=== PATIENT | male | born 1975 | race Caucasian/White ===

== ENCOUNTER 2019-09-05 15:15 | Emergency (ER) | payer BC ==
[~2019-09-05] VITALS: Ht 177.8 cm; Wt 86.4 kg
[~2019-09-05 15:15] MED LIST: ALLEGRA180 MG PO; AMOXICILLIN 8751 TAB PO; CLEOCIN HCL300 MG PO; LEVAQUIN 5500 MG/TA1 PO; MOTRIN 800800 MG/TAB PO; ZOFRAN 4MG T4 MG/TAB PO
[2019-09-05 15:24] VITALS: TEMP 96.5
[2019-09-05 16:18] LABS: BASO # 0.1 (0.0-0.2); BASO % 0.8 % (0.0-2.0); EOS # 0.1 (0.0-0.7); EOS % 1.4 % (0-4.0); GRAN # 3.2 (1.4-6.5); GRAN % 48.4 % (42.2-75.2); HEMATOCRIT 45.7 % (42.0-52.0); HEMOGLOBIN 15.9 g/dl (13.5-18.0); LYMPH # 2.7 (1.2-3.4); LYMPH % 41.7 % (20.0-51.0); MEAN CELL VOLUME 88 fl (80.0-100.0); MEAN CORPUSCULAR HEMOGLOBIN 31 pg (27.0-31.0); MEAN CORPUSCULAR HGB CONC 35 g/dl (33.0-37.0); MEAN PLATELET VOLUME 10.2 fl (7.4-10.4); MONO # 0.5 (0.1-0.6); MONO % 7.4 % (1.7-9.3); PLATELET COUNT 267 K/mm3 (130-400); RED BLOOD COUNT 5.22 M/mm3 (4.20-5.60); REDCELL DISTRIBUTION WIDTH-CV 12.4 % (11.5-14.5)
[2019-09-05 16:31] LABS: ALBUMIN 4.7 gm/dL (3.5-5.0); BILIRUBIN,TOTAL 1.2 mg/dL (0.0-1.0); CALCIUM 9.4 mg/dL (8.4-10.2); CREATININE, serum 1.19 (0.66-1.25); POTASSIUM 3.6 mmol/L (3.4-5.0); TOTAL PROTEIN 7.5 gm/dL (6.4-8.2)
[2019-09-05 17:59] VITALS: BP 108/74; PULSE 80
== END 2019-09-05 18:10 | disposition home or self-care (01) ==
LOC: COL.ER 15:15
PROVIDERS: Emergency Medicine
DX: R51 Headache (principal); F17.220 Nicotine dependence, chewing tobacco, uncomplicated; R20.2 Paresthesia of skin
CPT/HCPCS: J0780; J1200; J7030

== ENCOUNTER 2020-08-28 10:23 | Emergency (ER) | payer BC ==
[~2020-08-28] VITALS: Ht 177.8 cm; Wt 87.7 kg
[2020-08-28 10:46] VITALS: TEMP 97
[2020-08-28 11:27] LABS: BASO % 0.7 % (0.0-2.0); EOS # 0.2 (0.0-0.7); EOS % 2.7 % (0-4.0); GRAN # 3.2 (1.4-6.5); GRAN % 54.1 % (42.2-75.2); HEMATOCRIT 45.2 % (42.0-52.0); HEMOGLOBIN 15.5 g/dl (13.5-18.0); LYMPH % 34.5 % (20.0-51.0); MEAN CELL VOLUME 88 fl (80.0-100.0); MEAN CORPUSCULAR HEMOGLOBIN 30 pg (27.0-31.0); MEAN CORPUSCULAR HGB CONC 34 g/dl (33.0-37.0); MEAN PLATELET VOLUME 9.8 fl (7.4-10.4); MONO # 0.5 (0.1-0.6); MONO % 7.8 % (1.7-9.3); PLATELET COUNT 243 K/mm3 (130-400); RED BLOOD COUNT 5.13 M/mm3 (4.20-5.60); REDCELL DISTRIBUTION WIDTH-CV 13.1 % (11.5-14.5)
[2020-08-28 11:39] LABS: ALANINE AMINOTRANSFERASE 26 U/L (4-49); ALBUMIN 4.5 gm/dL (3.5-5.0); ALKALINE PHOSPHATASE 65 U/L (50-136); ANION GAP 9 mmol/L (7-16); AST,SGOT 25 U/L (15-37); BILIRUBIN,TOTAL 0.8 mg/dL (0.0-1.0); BLOOD UREA NITROGEN 11 mg/dL (9-20); CALCIUM 9.5 mg/dL (8.4-10.2); CARBON DIOXIDE 28 mmol/L (22-30); CHLORIDE 102 mmol/L (98-107); CREATININE, serum 1.04 (0.66-1.25); GLUCOSE 111 mg/dL (74-106); SODIUM 139 mmol/L (137-145); TOTAL PROTEIN 7.3 gm/dL (6.4-8.2)
[2020-08-28 12:07] LABS: TROPONIN-I < 0.012 ng/mL (0.000-0.035)
[2020-08-28 14:50] VITALS: BP 139/80; PULSE 79
== END 2020-08-28 15:00 | disposition home or self-care (01) ==
LOC: COL.ER 10:23
PROVIDERS: Physician Assistant
DX: H81.12 Benign paroxysmal vertigo, left ear (principal); Z87.891 Personal history of nicotine dependence
CPT/HCPCS: J7030